=== PATIENT | male | born 1995 | race Caucasian/White ===

== ENCOUNTER 2021-06-22 19:25 | Emergency (ER) | payer MEDICAID ==
[~2021-06-22] VITALS: Ht 190.5 cm; Wt 129.6 kg
[2021-06-22 20:07] VITALS: BP 139/87
== END 2021-06-22 20:17 | disposition home or self-care (01) ==
LOC: ER 19:26
DX: S20.212A Contusion of left front wall of thorax, initial encounter (principal); V86.96XA Unspecified occupant of dirt bike or motor/cross bike injured in nontraffic accident, initial encounter; Y93.89 Activity, other specified; Y92.89 Other specified places as the place of occurrence of the external cause; Y99.8 Other external cause status
CPT/HCPCS: 71101; 99283